=== PATIENT | male | born 1970 | race African-American/Black ===

== ENCOUNTER 2020-03-09 07:10 | Inpatient (IN) | payer SELFPAY ==
[2020-03-09] VITALS (9 sets, daily range): BP systolic 104–123; BP diastolic 59–72
[~2020-03-09] VITALS: Ht 175.3 cm; Wt 82.6 kg
[~2020-03-09 07:10] MED LIST: CIPR-263
[2020-03-09 10:45] LABS: MEAN CORPUSCULAR HEMOGLOBIN 17.6 pg (28.0-32.0); MEAN CORPUSCULAR VOLUME 61.6 fL (80.0-94.0); MEAN PLATELET VOLUME 8.7 fl (7.4-10.4); PLATELET 156 x1000/uL (130-400); RED BLOOD CELL COUNT 1.93 mill/uL (4.7-6.1); RED CELL DISTRIBUTION WIDTH 30.2 % (11.6-14.6)
[2020-03-09 10:52] LABS: HEMATOCRIT. 11.9 % (42.0-52.0); HEMOGLOBIN. 3.4 g/dL (14.0-18.0)
[2020-03-09 11:18] LABS: CLARITY URINE TURBID (CLEAR); COLOR URINE RED (YELLOW); KETONES URINE 2+ (NEGATIVE); LEUKOCYTE ESTERASE URINE 2+ (NEGATIVE); NITRITE URINE POSITIVE (NEGATIVE); OCCULT BLOOD URINE 3+ (NEGATIVE); PH URINE 5.5 (4.5-8.0); PROTEIN URINE 2+ (NEGATIVE); SPECIFIC GRAVITY URINE 1.013 (1.005-1.030)
[2020-03-09 11:34] LABS: PLATELET ESTIMATE NORMAL
[2020-03-09 11:56] LABS: PARTIAL THROMBOPLASTIN TIME 21.3 sec (23.4-31.0)
[2020-03-09] MEDS ORDERED: LORAZEPAM 2MG/ML CPJ IV PRN (16:30)
[2020-03-09] MEDS ORDERED: GUAIFENESIN 200MG/10ML SUGAR FREE UDC PO PRN (16:30)
[2020-03-09] MEDS ORDERED: DOCUSATE SODIUM 100MG CAPSULE PO PRN (16:30)
[2020-03-09] MEDS ORDERED: IPRATROPIUM/ALBUTEROL 0.5-3(2.5)MG/3ML NEB HHN PRN (16:30)
[2020-03-09] MEDS ORDERED: HYDROCODONE/ACETAMINOPHEN 10/325MG TABLET PO PRN (16:30)
[2020-03-09] MEDS ORDERED: HYDRALAZINE 20MG/ML VIAL IV PRN (16:30)
[2020-03-09] MEDS ORDERED: MORPHINE SULFATE 2 MG/ML CPJ (NOT FOR IM USE) IV PRN (16:30)
[2020-03-09] MEDS ORDERED: MAGNESIUM/ALUMINUM HYDROXIDE/SIMETHICONE 30ML UDC PO PRN (16:30)
[2020-03-09] MEDS ORDERED: ACETAMINOPHEN 325MG TABLET PO PRN (16:30)
[2020-03-09] MEDS ORDERED: CLONIDINE 0.1MG TABLET PO PRN (16:30)
[2020-03-09] MEDS ORDERED: ONDANSETRON HCL 4MG/2ML INJ IV PRN (16:30)
[2020-03-09] MEDS ORDERED: DIPHENHYDRAMINE 50MG/ML VIAL IV PRN (16:30)
[2020-03-09] MEDS: CEFTRIAXONE 1,000 MG in DEXTROSE 5% WATER 50 ML IV SCH (17:57)
[2020-03-09] MEDS: SODIUM CHLORIDE 0.45% 1,000 ML IV SCH (17:58)
[2020-03-09 18:19] LABS: MEAN CORPUSCULAR HEMOGLOBIN 20.6 pg (28.0-32.0); MEAN CORPUSCULAR VOLUME 67.9 fL (80.0-94.0); PLATELET 145 x1000/uL (130-400); RED BLOOD CELL COUNT 2.21 mill/uL (4.7-6.1); RED CELL DISTRIBUTION WIDTH 35.1 % (11.6-14.6)
[2020-03-09 18:30] LABS: HEMOGLOBIN 4.6 g/dL (14.0-18.0)
[2020-03-09] MEDS: SODIUM CHLORIDE 0.9% INJ 3ML FLUSH IVF SCH (21:45)
[2020-03-10] VITALS (24 sets, daily range): BP systolic 97–135; BP diastolic 61–77
[2020-03-10] MEDS: SODIUM CHLORIDE 0.45% 1,000 ML IV SCH ×2 (05:50→17:58)
[2020-03-10] MEDS: SODIUM CHLORIDE 0.9% INJ 3ML FLUSH IVF SCH ×3 (06:04→22:17)
[2020-03-10 07:20] LABS: CHLORIDE 114 mEq/L (98-107)
[2020-03-10 08:11] LABS: BASOPHILS % 0.6 % (0.0-2.0); EOSINOPHILS % 1.4 % (0.0-5.0); MEAN CORPUSCULAR HEMOGLOBIN 23.4 pg (28.0-32.0); MEAN CORPUSCULAR VOLUME 74.4 fL (80.0-94.0); MEAN PLATELET VOLUME 8.7 fl (7.4-10.4); MONOCYTES % 6.3 % (2.0-8.0); NEUTROPHILS % 68.7 % (40.0-76.0); PLATELET 157 x1000/uL (130-400); RED BLOOD CELL COUNT 2.79 mill/uL (4.7-6.1); RED CELL DISTRIBUTION WIDTH 33.5 % (11.6-14.6)
[2020-03-10 08:18] LABS: HEMOGLOBIN. 6.5 g/dL (14.0-18.0)
[2020-03-10 08:19] LABS: HEMATOCRIT. 20.7 % (42.0-52.0)
[2020-03-10 16:00] LABS: HEMATOCRIT 25.4 % (42.0-52.0); HEMOGLOBIN 8.2 g/dL (14.0-18.0)
[2020-03-10 16:06] LABS: INR 1.1; PROTHROMBIN TIME 11.3 sec (9.6-11.0)
[2020-03-10] MEDS: CEFTRIAXONE 1,000 MG in DEXTROSE 5% WATER 50 ML IV SCH (17:58)
[2020-03-11] VITALS (10 sets, daily range): BP systolic 113–131; BP diastolic 63–79
[2020-03-11] MEDS: SODIUM CHLORIDE 0.9% INJ 3ML FLUSH IVF SCH ×2 (06:36→14:43)
[2020-03-11] MEDS: SODIUM CHLORIDE 0.45% 1,000 ML IV SCH (08:07)
[2020-03-11] MEDS: CEFTRIAXONE 1,000 MG in DEXTROSE 5% WATER 50 ML IV SCH (18:00)
== END 2020-03-11 18:45 | disposition home or self-care (01) | DRG 463 ==
LOC: ER 07:10 → EDBEDREQTM 11:45 → EDBEDREQ 11:45 → 3WST 12:21 → EDBEDREQSVC 12:27 → EDBEDREQTM 12:27 → ENRESERV 14:06
PROVIDERS: ADMIT Internal Medicine; ATTEND Internal Medicine
DX: N13.6 Pyonephrosis (principal); N17.9 Acute kidney failure, unspecified; D64.9 Anemia, unspecified; R31.0 Gross hematuria; N32.89 Other specified disorders of bladder; K59.00 Constipation, unspecified; Z85.528 Personal history of other malignant neoplasm of kidney; Z87.440 Personal history of urinary (tract) infections; Z90.5 Acquired absence of kidney; Z79.899 Other long term (current) drug therapy; Z79.1 Long term (current) use of non-steroidal anti-inflammatories (NSAID)
CPT/HCPCS: 36415; 76770; 80048; 80053; 81003; 85014; 85018; 85025; 85027; 85049; 85384; 86850; 86900; 86920; 93005; 93970; 99291; J0696; J7060; P9016